=== PATIENT | male | born 1945 | race Hispanic/Latino ===

== ENCOUNTER → 2017-07-29 | Outpatient (CLI) | payer OTHER, MEDICARE | LOC: OIH 15:27 | PROVIDERS: ATTEND Internal Medicine | DX: S22.31XA Fracture of one rib, right side, initial encounter for closed fracture (principal); X58.XXXA Exposure to other specified factors, initial encounter; Y93.89 Activity, other specified; Y92.89 Other specified places as the place of occurrence of the external cause; Y99.8 Other external cause status | CPT/HCPCS: 71100 ==

== ENCOUNTER → 2018-05-24 | Outpatient (CLI) | payer OTHER, MEDICARE | END | disposition home or self-care (01) | LOC: OIH 15:21 | PROVIDERS: ATTEND Internal Medicine | DX: R07.89 Other chest pain (principal) | CPT/HCPCS: 71046 ==

== ENCOUNTER → 2018-07-03 | Outpatient (CLI) | payer OTHER, MEDICARE | END | disposition home or self-care (01) | LOC: RAH 17:04 | PROVIDERS: ATTEND Internal Medicine | DX: R91.1 Solitary pulmonary nodule (principal); J98.4 Other disorders of lung | CPT/HCPCS: 71046 ==

== ENCOUNTER → 2018-07-17 | Outpatient (CLI) | payer OTHER, MEDICARE | END | disposition home or self-care (01) | LOC: OIH 16:35 | PROVIDERS: ATTEND Internal Medicine | DX: R07.89 Other chest pain (principal) | CPT/HCPCS: 71046; 71100 ==

== ENCOUNTER → 2018-12-19 | Outpatient (CLI) | payer OTHER, MEDICARE ==
[2018-12-19 12:08] LABS: BASOPHILS % (AUTO) 1.1 % (0.0-5.0); EOSINOPHILS % (AUTO) 3.1 % (0.0-8.0); LYMPHOCYTES % (AUTO) 20.6 % (21.0-51.0); MEAN CORPUSCULAR HEMOGLOBIN 33.2 pg (27.0-33.0); MEAN CORPUSCULAR HGB CONC 34.3 g/dL (32.0-36.0); MEAN CORPUSCULAR VOLUME 96.8 fL (79-99); MONOCYTES % (AUTO) 14.9 % (3.0-13.0); NEUTROPHILS % (AUTO) 60.3 % (40.0-77.0); PLATELET COUNT (AUTO) 110 K/uL (130-400); RED BLOOD CELL COUNT(AUTO) 3.52 MIL/uL (4.50-6.20); RED CELL DISTRIBUTION WIDTH 15.3 % (11.0-15.5); WHITE BLOOD COUNT (AUTO) 3.7 K/uL (4.8-10.8)
[2018-12-19 12:21] LABS: ALBUMIN 3.5 g/dL (3.5-5.0); BILIRUBIN,TOTAL 0.4 mg/dL (0.2-1.0); CREATININE 1.1 mg/dL (0.5-1.5); POTASSIUM 4.9 mmol/L (3.5-5.1); TOTAL PROTEIN, SERUM 7.5 g/dL (6.0-8.3)
== END | disposition home or self-care (01) ==
LOC: OIH 10:03
PROVIDERS: ATTEND Internal Medicine
DX: M85.841 Other specified disorders of bone density and structure, right hand (principal); M19.041 Primary osteoarthritis, right hand; I70.0 Atherosclerosis of aorta; R22.31 Localized swelling, mass and lump, right upper limb; N39.3 Stress incontinence (female) (male)
CPT/HCPCS: 36415; 73120; 80053; 82140; 85025

== ENCOUNTER 2019-04-21 22:45 | Emergency (ER) | payer OTHER, MEDICARE ==
[2019-04-21 23:47] LABS: APPEARANCE,URINE Clear (CLEAR); BILIRUBIN,URINE Negative (NEGATIVE); COLOR,URINE Yellow (YELLOW); GLUCOSE, URINE (UA) Negative (NEGATIVE); KETONES,URINE Negative (NEGATIVE); LEUKOCYTE ESTERASE ,URINE Small (NEGATIVE); NITRATE,URINE Negative (NEGATIVE); OCCULT BLOOD,URINE Small (NEGATIVE); PH,URINE 6.5 (5.0-8.0); PROTEIN,URINE POS 1+ mg/dL (NEGATIVE)
[2019-04-21 23:54] LABS: AMPHET/METH SCREEN,URINE NEGATIVE (NEGATIVE); BARBITURATE SCREEN, URINE NEGATIVE (NEGATIVE); BENZODIAZEPINES SCREEN,URINE NEGATIVE (NEGATIVE); CANNABINOID SCREEN,URINE NEGATIVE (NEGATIVE); COCAINE SCREEN,URINE NEGATIVE (NEGATIVE); OPIATE SCREEN,URINE NEGATIVE (NEGATIVE); PHENCYCLIDINE SCREEN,URINE NEGATIVE (NEGATIVE)
[2019-04-21 23:56] LABS: BASOPHILS % (AUTO) 0.2 % (0.0-5.0); EOSINOPHILS % (AUTO) 2.1 % (0.0-8.0); HEMATOCRIT 32.8 % (42-54); LYMPHOCYTES % (AUTO) 15.3 % (21.0-51.0); MEAN CORPUSCULAR HGB CONC 34.3 g/dL (32.0-36.0); MEAN CORPUSCULAR VOLUME 101.9 fL (79-99); NEUTROPHILS % (AUTO) 74.4 % (40.0-77.0); NUCLEATED RED BLOOD CELLS 0.1 % (0.0-0.19); RED BLOOD CELL COUNT(AUTO) 3.22 MIL/uL (4.50-6.20); RED CELL DISTRIBUTION WIDTH 15.2 % (11.0-15.5); WHITE BLOOD COUNT (AUTO) 4.7 K/uL (4.8-10.8)
[2019-04-22 00:11] LABS: PLATELET COUNT (AUTO) 105 K/uL (130-400)
[2019-04-22 00:18] LABS: BACTERIA,URINE Few /HPF (None Seen); MUCUS,URINE Moderate LPF (None Seen); SQUAMOUS EPITHELIAL CELL,UR Few /HPF (0-2)
[2019-04-22 00:50] LABS: CREATININE 1.2 mg/dL (0.5-1.5); POTASSIUM 3.6 mmol/L (3.5-5.1)
[2019-04-22 00:52] LABS: INR 0.99 (0.85-1.15); PARTIAL THROMBOPLASTIN TIME 27.7 SEC (26.3-35.5); PROTHROMBIN TIME 10.4 SEC (9.6-11.6)
[2019-04-22 00:54] LABS: ALBUMIN 2.8 g/dL (3.5-5.0); BILIRUBIN,TOTAL 0.7 mg/dL (0.2-1.0); TOTAL PROTEIN, SERUM 7.1 g/dL (6.0-8.3)
[2019-04-22] MEDS ORDERED: SODIUM CHLORIDE 0.9% 1000ML 1,000 ML IV ONE (01:21)
== END 2019-04-22 03:23 | disposition home or self-care (01) ==
LOC: EDH 22:45
DX: S09.90XA Unspecified injury of head, initial encounter (principal); S50.12XA Contusion of left forearm, initial encounter; I10 Essential (primary) hypertension; E11.9 Type 2 diabetes mellitus without complications; Z72.89 Other problems related to lifestyle; Z86.73 Personal history of transient ischemic attack (TIA), and cerebral infarction without residual deficits; W18.39XA Other fall on same level, initial encounter; Y93.89 Activity, other specified; Y92.89 Other specified places as the place of occurrence of the external cause; Y99.8 Other external cause status
CPT/HCPCS: 36415; 70450; 71045; 72125; 73090; 80053; 80305; 81001; 82550; 84484; 85025; 85610; 85730; 93005; 99285; G0480; J7030

== ENCOUNTER 2019-08-11 00:02 | Observation (INO) | payer MEDICARE ==
[~2019-08-11] VITALS: Ht 175.3 cm; Wt 82.1 kg
[2019-08-11 00:37] LABS: POTASSIUM 4.1 mmol/L (3.5-5.1); SODIUM SERUM 126 mmol/L (136-145)
[2019-08-11 00:38] LABS: CARBON DIOXIDE 24 mmol/L (21-32); CREATININE 1.8 mg/dL (0.5-1.5); GLOMERULAR FILTR. RATE CALC 40 mL/min (>60); GLUCOSE,RANDOM 220 mg/dL (70-105); UREA NITROGEN, BLOOD 25 mg/dL (7-18)
[2019-08-11 00:44] LABS: ALANINE AMINOTRANSFERASE 66 U/L (12-78); ALBUMIN 3.9 g/dL (3.5-5.0); ASPARTATE AMINOTRANSFERASE 59 U/L (10-37); TOTAL PROTEIN, SERUM 8.7 g/dL (6.0-8.3)
[2019-08-11 00:45] LABS: BASOPHILS % (AUTO) 0.3 % (0.0-5.0); EOSINOPHILS % (AUTO) 0.1 % (0.0-8.0); HEMATOCRIT 37.8 % (42-54); LYMPHOCYTES % (AUTO) 8.1 % (21.0-51.0); MEAN CORPUSCULAR HEMOGLOBIN 32.9 pg (27.0-33.0); MEAN CORPUSCULAR HGB CONC 35.4 g/dL (32.0-36.0); MEAN CORPUSCULAR VOLUME 92.9 fL (79-99); MONOCYTES % (AUTO) 8.3 % (3.0-13.0); NEUTROPHILS % (AUTO) 82.9 % (40.0-77.0); PLATELET COUNT (AUTO) 174 K/uL (130-400); RED BLOOD CELL COUNT(AUTO) 4.07 MIL/uL (4.50-6.20); RED CELL DISTRIBUTION WIDTH 12.6 % (11.0-15.5); WHITE BLOOD COUNT (AUTO) 7.2 K/uL (4.8-10.8)
[2019-08-11 00:47] LABS: AMMONIA < 10 umol/L (11-32)
[2019-08-11 00:48] LABS: CHLORIDE 90 mmol/L (101-111)
[2019-08-11] MEDS ORDERED: DICYCLOMINE HCL 10 MG/ML 2ML AMP IM ONE (01:59)
[2019-08-11] MEDS ORDERED: CEFTRIAXONE SODIUM 1 GM ONE (02:52)
[2019-08-11] MEDS ORDERED: SODIUM CHLORIDE 0.9% 1000ML 1,000 ML IV ONE (02:53)
[2019-08-11 06:55] LABS: CREATININE 1.6 mg/dL (0.5-1.5)
[2019-08-11 07:00] LABS: ALBUMIN 3.3 g/dL (3.5-5.0); BILIRUBIN,TOTAL 0.7 mg/dL (0.2-1.0)
[2019-08-11 07:32] LABS: BASOPHILS % (AUTO) 0.3 % (0.0-5.0); EOSINOPHILS % (AUTO) 0.1 % (0.0-8.0); HEMATOCRIT 35.8 % (42-54); LYMPHOCYTES % (AUTO) 6.8 % (21.0-51.0); MEAN CORPUSCULAR HEMOGLOBIN 33.9 pg (27.0-33.0); MEAN CORPUSCULAR HGB CONC 36.3 g/dL (32.0-36.0); MEAN CORPUSCULAR VOLUME 93.5 fL (79-99); MONOCYTES % (AUTO) 9.5 % (3.0-13.0); PLATELET COUNT (AUTO) 147 K/uL (130-400); RED BLOOD CELL COUNT(AUTO) 3.83 MIL/uL (4.50-6.20); WHITE BLOOD COUNT (AUTO) 7.7 K/uL (4.8-10.8)
[2019-08-11 08:15] VITALS: BP 142/88
[2019-08-11] MEDS ORDERED: LIDOCAINE HCL-MPF 1% 2ML VIAL IJ PRN (08:30)
[2019-08-11] MEDS ORDERED: POTASSIUM CHLORIDE 10% ELIXIR 20 MEQ/15 ML UDCUP PO PRN (08:30)
[2019-08-11] MEDS ORDERED: POTASSIUM CHLORIDE 20MEQ/100ML 100 ML IV PRN (08:30)
[2019-08-11] MEDS ORDERED: 1/2 NORMAL SALINE 1,000 ML IV SCH (08:30)
[2019-08-11] MEDS ORDERED: ONDANSETRON HCL 4 MG/2 ML VIAL IVP PRN (08:30)
[2019-08-11] MEDS: FAMOTIDINE/PF 20 MG/2 ML VIAL IV SCH (09:00)
--- NOTE | 2019-08-11 09:00 | NUR ---
Admission unable to obtain information from patient. does not follow commands nor seems to have the ability to answer questions. will attempt through duration of day
[2019-08-11 11:30] VITALS: BP 147/92
[2019-08-11 16:00] VITALS: BP 146/90
--- NOTE | 2019-08-11 16:30 | NUR ---
INFO RE PATIENT PLEASE SEE ORDER FROM DR. GROSSMAN as per MD- PT lives alone, Has has open APS case, no need to open another one, just call when pt about to be discharged to have worker go visit. Pt is non compliant, able to make own decisions, and pt is expected to DC in 24 hrs. At present too confused for conversations. states that patient is at baseline when seen by MD and this is not a mental status change
[2019-08-11] MEDS: SODIUM CHLORIDE 0.9% 1000ML 1,000 ML IV SCH (17:11)
[2019-08-11 19:56] VITALS: BP 144/89
[2019-08-12] VITALS: BP 129/90
[2019-08-12 03:38] VITALS: BP 120/61
[2019-08-12 05:30] LABS: HEMATOCRIT 30.7 % (42-54); MEAN CORPUSCULAR HEMOGLOBIN 33.3 pg (27.0-33.0); MEAN CORPUSCULAR HGB CONC 35.2 g/dL (32.0-36.0); MEAN CORPUSCULAR VOLUME 94.8 fL (79-99); PLATELET COUNT (AUTO) 96 K/uL (130-400); RED BLOOD CELL COUNT(AUTO) 3.24 MIL/uL (4.50-6.20); RED CELL DISTRIBUTION WIDTH 12.9 % (11.0-15.5); WHITE BLOOD COUNT (AUTO) 4.4 K/uL (4.8-10.8)
[2019-08-12] MEDS: SODIUM CHLORIDE 0.9% 1000ML 1,000 ML IV SCH (05:57)
[2019-08-12 05:59] LABS: ALBUMIN 2.8 g/dL (3.5-5.0); BILIRUBIN,TOTAL 0.6 mg/dL (0.2-1.0); CREATININE 1.3 mg/dL (0.5-1.5); POTASSIUM 3.3 mmol/L (3.5-5.1); TOTAL PROTEIN, SERUM 7.5 g/dL (6.0-8.3)
[2019-08-12] MEDS: POTASSIUM CHLORIDE 20 MEQ ERTAB PO PRN ×3 (06:16→11:55)
[2019-08-12] MEDS: FAMOTIDINE/PF 20 MG/2 ML VIAL IV SCH (08:17)
[2019-08-12 08:56] VITALS: BP 133/78
--- NOTE | 2019-08-12 10:30 | NUR ---
CALLING PROVIDER, PER FACE SHEET .TO VOICE MAIL LEAVING MESSAGE , REGARDING PT MAY GO HOME, , MARY LED OTHER PHONE . FACE SHEET NAME JAUN . . NO ANSWER . TO VOICE MAIL. MESSAGE LEFT REGARDING CLEARANCE TO GO HOME
[2019-08-12 11:50] VITALS: BP 129/69
--- NOTE | 2019-08-12 13:00 | NUR ---
SONS AT THE BEDSIDE, UPDATE PT READY TO GO HOME, ONE SON STATED THAT HIS TRUCK IS VERY HIGH TO GET IN , CALLED PROVIDER , AND STATED THAT SHE WAS COMING TO TAKE HIM HOME, ,
--- NOTE | 2019-08-12 14:14 | NUR ---
DISCHARGE SUMMARY WAS REVIEW WITH PT AND PT SON, TO FOLLOW WITH DR. GROSSMAN FOR ANY CONCERNS , SL TO HIS RAC WAS TAKEN OFF WITH NO HEMATOMA OR REDNESS TO SITE, . PT WAS NOT ABLE TO SIGH HIS DISCHARGE SUMMARY PAPERS ,DUE TO HAND GOT STIFF, AND DID WANT HE COULD. SONS TAKING HIM HOME, AND REVIEW SOME EDUCATION WITH PT. AND FAMILY ,HIS SONS . PT HAD A TOTAL OF 3 SOFT BM .
== END 2019-08-12 14:10 | disposition home or self-care (01) ==
LOC: EDH 00:02 → EDHIP 02:45 → 4DH 08:02
PROVIDERS: ADMIT Internal Medicine; ATTEND Internal Medicine
DX: K72.90 Hepatic failure, unspecified without coma (principal); R41.82 Altered mental status, unspecified; E87.6 Hypokalemia; E11.9 Type 2 diabetes mellitus without complications; I10 Essential (primary) hypertension; K74.60 Unspecified cirrhosis of liver; Z86.73 Personal history of transient ischemic attack (TIA), and cerebral infarction without residual deficits
CPT/HCPCS: 36415 ×2; 74176; 80053 ×3; 82140; 82270; 82948 ×6; 83690; 83735; 84484; 85025 ×2; 85027; 93005; 96361 ×2; 96365; 96366; 96375; 96376; 97116; 97161; 99285; G0378 ×23; G0480; G8978; G8979; G8980; G8981; G8982; G8983; J0500; J0696; J3480; J3490 ×2; J7030; 96374

== ENCOUNTER 2021-04-14 21:51 | Inpatient (IN) | payer OTHER, MEDICARE ==
[2021-04-14 23:07] LABS: BASOPHILS % (AUTO) 0.5 % (0.0-5.0); HEMATOCRIT 30.9 % (42-54); LYMPHOCYTES % (AUTO) 17.7 % (21.0-51.0); MEAN CORPUSCULAR HEMOGLOBIN 33.9 pg (27.0-33.0); MEAN CORPUSCULAR HGB CONC 35.3 g/dL (32.0-36.0); MONOCYTES % (AUTO) 7.2 % (3.0-13.0); NEUTROPHILS % (AUTO) 72.4 % (40.0-77.0); PLATELET COUNT (AUTO) 87 K/uL (130-400); RED BLOOD CELL COUNT(AUTO) 3.22 MIL/uL (4.50-6.20); RED CELL DISTRIBUTION WIDTH 13.8 % (11.0-15.5); WHITE BLOOD COUNT (AUTO) 6.1 K/uL (4.8-10.8)
[2021-04-14 23:17] LABS: CREATININE 1.5 mg/dL (0.5-1.5); POTASSIUM 4.1 mmol/L (3.5-5.1)
[2021-04-14 23:22] LABS: ALBUMIN 2.9 g/dL (3.5-5.0); BILIRUBIN,TOTAL 0.4 mg/dL (0.2-1.0); TOTAL PROTEIN, SERUM 6.9 g/dL (6.0-8.3)
[2021-04-15 00:12] LABS: ERYTHROCYTE SEDIMENTATION RATE 72 MM/HR (0-20)
[2021-04-15] MEDS ORDERED: 0.9%NACL 1000ML 1,000 ML IV ONE ×2 (02:00→03:18)
[2021-04-15] MEDS ORDERED: MULT-660 PO (04:23)
[2021-04-15] MEDS ORDERED: SERT-439 PO ×2 (04:23→15:22)
[2021-04-15] MEDS ORDERED: ASPI-1005 PO (04:23)
[2021-04-15] MEDS ORDERED: ATORVASTATIN (04:23)
[2021-04-15] MEDS ORDERED: TRAZ-185 PO ×2 (04:23→15:22)
[2021-04-15] MEDS ORDERED: ACET650O3 PO (04:23)
[2021-04-15] MEDS ORDERED: METO-391 PO ×2 (04:23→15:22)
[2021-04-15] MEDS ORDERED: FAMO20TA8 PO ×2 (04:23→15:22)
[2021-04-15] MEDS ORDERED: ONDA4TAB10 PO (04:23)
[2021-04-15] MEDS ORDERED: ATOR10 PO (15:22)
[2021-04-15] MEDS ORDERED: MULT-1367 PO (15:22)
[2021-04-15] MEDS ORDERED: ACET-3194 PO (15:22)
[2021-04-15] MEDS ORDERED: ONDA4TAB4 PO (15:22)
[2021-04-15] MEDS ORDERED: AEC81 PO (15:22)
[2021-04-15] MEDS: TRAZODONE HCL 50 MG TAB PO SCH (17:48)
[2021-04-15 20:00] VITALS: BP 139/64
[2021-04-15] MEDS: ATORVASTATIN 20 MG TABLET PO SCH (22:42)
[2021-04-16] VITALS: BP 148/74
[2021-04-16 04:00] VITALS: BP 136/53
[2021-04-16] MEDS ORDERED: DEXTROSE 50%-WATER 50 ML DISP.SYRIN IV PRN (07:30)
[2021-04-16] MEDS ORDERED: GLUCAGON 1MG KIT 1 MG ML IM PRN (07:30)
[2021-04-16 08:23] VITALS: BP 130/67
[2021-04-16] MEDS: ASPIRIN 81 MG EC TAB PO SCH (09:47)
[2021-04-16] MEDS: METOPROLOL SUCCINATE 50 MG TAB.SR.24H PO SCH (09:47)
[2021-04-16] MEDS: SERTRALINE HCL 50 MG TABLET PO SCH (09:47)
[2021-04-16] MEDS: MULTIVITAMIN TABLET PO SCH (09:47)
[2021-04-16] MEDS: FAMOTIDINE 20MG TAB PO SCH (09:47)
[2021-04-16 10:49] VITALS: BP 137/63
[2021-04-16] MEDS: INSULIN HUMULIN R 100 UNIT/ML 3ML SQ SCH ×3 (11:30→20:25)
[2021-04-16] MEDS ORDERED: SODIUM CHLORIDE 3% FOR INHALATION 4 ML/AMP VIAL.NEB IH ONE ×3 (15:38→23:11)
[2021-04-16 16:07] VITALS: BP 124/58
[2021-04-16] MEDS: TRAZODONE HCL 50 MG TAB PO SCH (16:43)
[2021-04-16 20:00] VITALS: BP 134/63
[2021-04-16] MEDS: ATORVASTATIN 20 MG TABLET PO SCH (20:16)
[2021-04-17] VITALS: BP 128/65
[2021-04-17 04:00] VITALS: BP 138/57
[2021-04-17] MEDS: INSULIN HUMULIN R 100 UNIT/ML 3ML SQ SCH ×4 (06:21→21:00)
[2021-04-17 08:00] VITALS: BP 136/84
[2021-04-17] MEDS: METOPROLOL SUCCINATE 50 MG TAB.SR.24H PO SCH (09:06)
[2021-04-17] MEDS: ASPIRIN 81 MG EC TAB PO SCH (09:06)
[2021-04-17] MEDS: MULTIVITAMIN TABLET PO SCH (09:06)
[2021-04-17] MEDS: SERTRALINE HCL 50 MG TABLET PO SCH (09:06)
[2021-04-17] MEDS: FAMOTIDINE 20MG TAB PO SCH (09:06)
[2021-04-17 11:58] VITALS: BP 137/57
[2021-04-17 16:00] VITALS: BP 141/55
[2021-04-17] MEDS: TRAZODONE HCL 50 MG TAB PO SCH (17:34)
[2021-04-17 20:00] VITALS: BP 133/58
[2021-04-17] MEDS: ATORVASTATIN 20 MG TABLET PO SCH (21:16)
[2021-04-18] VITALS: BP 123/60
[2021-04-18 04:00] VITALS: BP 130/56
[2021-04-18] MEDS: INSULIN HUMULIN R 100 UNIT/ML 3ML SQ SCH ×4 (07:30→20:37)
[2021-04-18 08:00] VITALS: BP 134/50
[2021-04-18] MEDS: METOPROLOL SUCCINATE 50 MG TAB.SR.24H PO SCH (09:01)
[2021-04-18] MEDS: ASPIRIN 81 MG EC TAB PO SCH (09:01)
[2021-04-18] MEDS: SERTRALINE HCL 50 MG TABLET PO SCH (09:01)
[2021-04-18] MEDS: MULTIVITAMIN TABLET PO SCH (09:01)
[2021-04-18] MEDS: FAMOTIDINE 20MG TAB PO SCH (09:02)
[2021-04-18 12:00] VITALS: BP 126/54
[2021-04-18 16:00] VITALS: BP 125/41
[2021-04-18] MEDS: TRAZODONE HCL 50 MG TAB PO SCH (16:46)
[2021-04-18 20:00] VITALS: BP 121/58
[2021-04-18] MEDS: ATORVASTATIN 20 MG TABLET PO SCH (20:36)
[2021-04-19] VITALS: BP 146/59
[2021-04-19 04:00] VITALS: BP 136/55
[2021-04-19] MEDS: INSULIN HUMULIN R 100 UNIT/ML 3ML SQ SCH ×4 (06:14→20:40)
[2021-04-19 08:00] VITALS: BP 129/68
[2021-04-19] MEDS: ASPIRIN 81 MG EC TAB PO SCH (10:47)
[2021-04-19] MEDS: SERTRALINE HCL 50 MG TABLET PO SCH (10:47)
[2021-04-19] MEDS: MULTIVITAMIN TABLET PO SCH (10:48)
[2021-04-19] MEDS: METOPROLOL SUCCINATE 50 MG TAB.SR.24H PO SCH (10:48)
[2021-04-19] MEDS: FAMOTIDINE 20MG TAB PO SCH (10:48)
[2021-04-19 12:00] VITALS: BP 145/70
[2021-04-19 16:00] VITALS: BP 118/64
[2021-04-19] MEDS: TRAZODONE HCL 50 MG TAB PO SCH (16:31)
[2021-04-19 20:00] VITALS: BP 114/46
[2021-04-19] MEDS: ATORVASTATIN 20 MG TABLET PO SCH (20:41)
[2021-04-20] VITALS: BP 142/57
[2021-04-20 04:00] VITALS: BP 134/54
[2021-04-20 08:00] VITALS: BP 108/43
[2021-04-20] MEDS: FAMOTIDINE 20MG TAB PO SCH (08:54)
[2021-04-20] MEDS: METOPROLOL SUCCINATE 50 MG TAB.SR.24H PO SCH (08:54)
[2021-04-20] MEDS: MULTIVITAMIN TABLET PO SCH (08:54)
[2021-04-20] MEDS: SERTRALINE HCL 50 MG TABLET PO SCH (08:54)
[2021-04-20] MEDS: ASPIRIN 81 MG EC TAB PO SCH (08:54)
[2021-04-20] MEDS: INSULIN HUMULIN R 100 UNIT/ML 3ML SQ SCH ×3 (11:30→21:00)
[2021-04-20 11:50] VITALS: BP 102/51
[2021-04-20 16:00] VITALS: BP 105/45
[2021-04-20] MEDS: TRAZODONE HCL 50 MG TAB PO SCH (16:52)
[2021-04-20 20:00] VITALS: BP 126/58
[2021-04-20] MEDS: ATORVASTATIN 20 MG TABLET PO SCH (21:31)
[2021-04-21] VITALS: BP 131/57
[2021-04-21 04:00] VITALS: BP 135/68
[2021-04-21] MEDS: INSULIN HUMULIN R 100 UNIT/ML 3ML SQ SCH ×4 (06:41→20:55)
[2021-04-21] MEDS: SERTRALINE HCL 50 MG TABLET PO SCH (07:44)
[2021-04-21] MEDS: MULTIVITAMIN TABLET PO SCH (07:44)
[2021-04-21] MEDS: FAMOTIDINE 20MG TAB PO SCH (07:44)
[2021-04-21] MEDS: ASPIRIN 81 MG EC TAB PO SCH (07:45)
[2021-04-21] MEDS: METOPROLOL SUCCINATE 50 MG TAB.SR.24H PO SCH ×2 (07:45→08:51)
[2021-04-21 08:00] VITALS: BP 142/46
[2021-04-21 09:37] LABS: HEMATOCRIT 31.6 % (42-54); MEAN CORPUSCULAR HEMOGLOBIN 33.9 pg (27.0-33.0); MEAN CORPUSCULAR HGB CONC 35.1 g/dL (32.0-36.0); MEAN CORPUSCULAR VOLUME 96.6 fL (79-99); RED BLOOD CELL COUNT(AUTO) 3.27 MIL/uL (4.50-6.20); RED CELL DISTRIBUTION WIDTH 13.9 % (11.0-15.5); WHITE BLOOD COUNT (AUTO) 4.8 K/uL (4.8-10.8)
[2021-04-21 09:57] LABS: CREATININE 1.5 mg/dL (0.5-1.5); POTASSIUM 3.8 mmol/L (3.5-5.1)
[2021-04-21 12:00] VITALS: BP 109/58
[2021-04-21 16:00] VITALS: BP 122/56
[2021-04-21] MEDS: TRAZODONE HCL 50 MG TAB PO SCH (17:02)
[2021-04-21 20:00] VITALS: BP 120/57
[2021-04-21] MEDS: ATORVASTATIN 20 MG TABLET PO SCH (20:55)
[2021-04-22 00:32] VITALS: BP 137/60
[2021-04-22 04:32] VITALS: BP 144/70
[2021-04-22] MEDS: INSULIN HUMULIN R 100 UNIT/ML 3ML SQ SCH ×3 (05:54→16:19)
[2021-04-22 08:00] VITALS: BP 146/53
[2021-04-22] MEDS: ASPIRIN 81 MG EC TAB PO SCH (10:32)
[2021-04-22] MEDS: METOPROLOL SUCCINATE 50 MG TAB.SR.24H PO SCH (10:32)
[2021-04-22] MEDS: FAMOTIDINE 20MG TAB PO SCH (10:32)
[2021-04-22] MEDS: MULTIVITAMIN TABLET PO SCH (10:32)
[2021-04-22] MEDS: SERTRALINE HCL 50 MG TABLET PO SCH (10:32)
[2021-04-22 12:00] VITALS: BP 111/60
[2021-04-22 16:00] VITALS: BP 143/59
[2021-04-22] MEDS: TRAZODONE HCL 50 MG TAB PO SCH (17:51)
== END 2021-04-22 19:00 | DRG 177 ==
LOC: EDH 21:51 → EDHIP 04-15 01:15 → OBSVTOIN 04-15 01:15 → 3CH 04-15 18:54
PROVIDERS: ADMIT Internal Medicine; ATTEND Internal Medicine
DX: R76.11 Nonspecific reaction to tuberculin skin test without active tuberculosis (principal); E43 Unspecified severe protein-calorie malnutrition; U07.1 COVID-19; E78.5 Hyperlipidemia, unspecified; K21.9 Gastro-esophageal reflux disease without esophagitis; F32.A Depression, unspecified; F03.90 Unspecified dementia, unspecified severity, without behavioral disturbance, psychotic disturbance, mood disturbance, and anxiety; E11.9 Type 2 diabetes mellitus without complications; R53.81 Other malaise; R09.1 Pleurisy; I10 Essential (primary) hypertension; E78.00 Pure hypercholesterolemia, unspecified; K74.60 Unspecified cirrhosis of liver; N19 Unspecified kidney failure; Z78.9 Other specified health status; Z74.01 Bed confinement status; Z83.3 Family history of diabetes mellitus
CPT/HCPCS: 36415; 71250; 80048; 80053; 82948; 84484; 85025; 85027; 85651; 86480; 87635; 94640; 97039; G0378; J7030

== ENCOUNTER 2021-09-14 00:46 | Emergency (ER) | payer MEDICARE ==
[~2021-09-14] VITALS: Ht 213.4 cm; Wt 77.6 kg
[~2021-09-14 00:46] MED LIST: ACET-3194 PO; ASPI-1005 PO; ATOR10 PO; FAMO20TA8 PO; METO-391 PO; MULT-660 PO; SERT-439 PO; TRAZ-185 PO
[2021-09-14 01:11] LABS: BASOPHILS % (AUTO) 0.9 % (0.0-5.0); EOSINOPHILS % (AUTO) 3.7 % (0.0-8.0); HEMATOCRIT 32.6 % (42-54); LYMPHOCYTES % (AUTO) 27.3 % (21.0-51.0); MEAN CORPUSCULAR HGB CONC 34.4 g/dL (32.0-36.0); MEAN CORPUSCULAR VOLUME 96.2 fL (79-99); MONOCYTES % (AUTO) 9.4 % (3.0-13.0); NEUTROPHILS % (AUTO) 58.5 % (40.0-77.0); PLATELET COUNT (AUTO) 95 K/uL (130-400); RED BLOOD CELL COUNT(AUTO) 3.39 MIL/uL (4.50-6.20); RED CELL DISTRIBUTION WIDTH 13.7 % (11.0-15.5); WHITE BLOOD COUNT (AUTO) 4.4 K/uL (4.8-10.8)
[2021-09-14 01:22] LABS: POTASSIUM 3.6 mmol/L (3.5-5.1)
[2021-09-14 01:28] LABS: B-TYPE NATRIURETIC PEPTIDE 122 pg/mL (0-100)
[2021-09-14 01:29] LABS: ALBUMIN 2.6 g/dL (3.5-5.0); BILIRUBIN,TOTAL 0.3 mg/dL (0.2-1.0); TOTAL PROTEIN, SERUM 6.2 g/dL (6.0-8.3)
[2021-09-14] MEDS ORDERED: ASPIRIN 81MG CHEW TAB PO ONE (01:30)
[2021-09-14] MEDS ORDERED: MAG/ALUM/SIMETH 30 ML UDCUP PO ONE (01:30)
[2021-09-14] MEDS ORDERED: LIDOCAINE HCL 2% VISCOUS 15 ML UDCUP PO ONE (01:30)
[2021-09-14 03:14] VITALS: BP 162/64
== END 2021-09-14 03:48 | disposition home or self-care (01) ==
LOC: EDH 00:46
DX: K21.9 Gastro-esophageal reflux disease without esophagitis (principal); R07.89 Other chest pain; I10 Essential (primary) hypertension; E11.9 Type 2 diabetes mellitus without complications; E78.00 Pure hypercholesterolemia, unspecified; F03.90 Unspecified dementia, unspecified severity, without behavioral disturbance, psychotic disturbance, mood disturbance, and anxiety; F32.A Depression, unspecified; Z79.82 Long term (current) use of aspirin; Z79.899 Other long term (current) drug therapy; Z86.73 Personal history of transient ischemic attack (TIA), and cerebral infarction without residual deficits
CPT/HCPCS: 36415; 71045; 80053; 83880; 84484; 85025; 93005